=== PATIENT | female | born 1990 | race Caucasian/White ===

== ENCOUNTER → 2017-04-15 | Outpatient (CLI) | payer OTHER ==
[~2017-04-15] MED LIST: ACET325 PO; ALBU90OI; ALBU90OI INH; Advil200 M1; CEPH250A PO; CEPH500 PO; CIPRO500 MG PO; Cheratussin AC118 ML PO; DIPATR PO; DOXY100 PO; FLUO10 PO; Flagyl500 MG PO; HYDACE5325 PO; IBUP200 PO; IBUP800 PO; LOMEDIA 24 FE1 EACH PO; METERG.2 PO; METO10 PO; MULVITMINE PO; NAPR500 PO; OMEP40CA12; ONDA4ODT MM; OXYACE5T PO; PREN-16 PO; PROC10 PO; PROM25 PO; Pepcid40 MG PO; Percocet 5-3251 EACH PO; Phenergan25 MG PR; Prednisone20 MG PO; RANI150 PO; RXONDA4ODT MM; TRAM50 PO; Verotin-Gr Cap1 EACH PO; Zithromax250 MG PO; Zofran Odt8 MG SL
== END | disposition home or self-care (01) ==
LOC: PLD 13:24 → LAB SHORT 13:24
DX: D22.5 Melanocytic nevi of trunk (principal); L90.5 Scar conditions and fibrosis of skin
CPT/HCPCS: 88305

== ENCOUNTER 2017-06-26 23:48 | Emergency (ER) | payer OTHER ==
[~2017-06-26] VITALS: Ht 157.5 cm; Wt 68.0 kg
== END 2017-06-27 00:33 | disposition home or self-care (01) ==
LOC: ER 23:48
DX: J06.9 Acute upper respiratory infection, unspecified (principal); Z88.8 Allergy status to other drugs, medicaments and biological substances; Z79.899 Other long term (current) drug therapy; Z79.52 Long term (current) use of systemic steroids; J45.909 Unspecified asthma, uncomplicated; G40.909 Epilepsy, unspecified, not intractable, without status epilepticus; F41.9 Anxiety disorder, unspecified; F32.9 Major depressive disorder, single episode, unspecified
CPT/HCPCS: 87081; 87430; 99283

== ENCOUNTER → 2019-08-07 | Outpatient (CLI) | payer OTHER ==
[~2019-08-07] MED LIST changes: +Amoxicillin875 MG PO; +PAROEX473 ML MM
== END | disposition home or self-care (01) ==
LOC: LAB SHORT 15:24 → LAB EV 15:24
DX: N39.0 Urinary tract infection, site not specified (principal)
CPT/HCPCS: 87086

== ENCOUNTER → 2022-01-23 | Outpatient (CLI) | payer OTHER ==
[2022-01-28 11:10] LABS: HPV 16 Negative (Negative); HPV 18 Negative (Negative); HPV OTHER HR TYPES Negative (Negative)
== END | disposition home or self-care (01) ==
LOC: RAD SHORT 10:15 → LAB 10:15
PROVIDERS: Obstetrics & Gynecology
DX: Z01.419 Encounter for gynecological examination (general) (routine) without abnormal findings (principal)
CPT/HCPCS: 87624; G0123

== ENCOUNTER 2023-01-14 05:53 | Day surgery (SDC) | payer OTHER ==
[~2023-01-14] VITALS: Ht 157.5 cm; Wt 95.7 kg
[2023-01-14] VITALS (16 sets, daily range): BP systolic 110–155; BP diastolic 72–90
--- NOTE | 2023-01-14 07:33 | NUR ---
History, Chart, Medications and Allergies reviewed before start of procedure. Lungs clear T/O to Auscultation. Patient confirms NPO status and agrees with scheduled surgery. Pre-Op teaching done. Pt verbalizes understanding. Patient reports completing Chlorhexadine shower X2 prior to admission to hospital.
[2023-01-14] MEDS ORDERED: ACET500 PO (15:24)
[2023-01-14] MEDS ORDERED: OXYC5 PO (15:25)
[2023-01-14] MEDS ORDERED: CLIMARA1 EACH TD (15:25)
--- NOTE | 2023-01-14 15:36 | NUR ---
DISCHARGE NOTE: PATIENT WAS EDUCATED ON DISCHARGE INSTRUCTIONS. PATIENT VERBALIZED UNDERSTANDING OF INSTRUCTIONS AND HAD NO FURTHER QUESTIONS AT THIS TIME. IV WAS TAKEN OUT AND WNL. PAIN IS MANAGED WITH ORAL PAIN MEDS. HER ABD HAS X4 LAP SITES WITH WOUND GLUE THAT ARE C/D/I. ABD BINDER IS ALSO IN PLACE. SHE IS TOLERATING PO INTAKE AND IS VOIDING/PASSING GAS. PATIENT IS DRESSED AND HAS PERSONAL ITEMS IN THE ROOM GATHERED. PATIENT IS BEING WHEELCHAIRED OUT TO HER SPOUSES CAR TO BE TAKEN HOME. PATIENTS ESTROGEN PATCH WAS ALSO PLACED ON PATIENT.
== END 2023-01-14 15:39 | disposition home or self-care (01) ==
LOC: ORSCMMR 05:53 → ORD 07:30 → ORSCMMR 07:30 → SURS 10:05 → ORSCMMR 10:06 → SURS 15:39 → ORSCMMR 15:39
PROVIDERS: Obstetrics & Gynecology
PROC: 0UT94ZZ Resection of Uterus, Percutaneous Endoscopic Approach (ICD-10-PCS; principal; 2023-01-14 07:30)
DX: N93.9 Abnormal uterine and vaginal bleeding, unspecified (principal); R10.2 Pelvic and perineal pain; N94.6 Dysmenorrhea, unspecified; N84.0 Polyp of corpus uteri; E28.2 Polycystic ovarian syndrome; F41.8 Other specified anxiety disorders; J45.909 Unspecified asthma, uncomplicated; Z79.899 Other long term (current) drug therapy
CPT/HCPCS: 88307; A9270; J0690; J1100; J1170; J2250; J2405; J2704; J2765; J3010; J7120

== ENCOUNTER → 2023-02-25 | Outpatient (CLI) | payer OTHER ==
[~2023-02-25] MED LIST changes: +ACET500 PO; +CLIMARA1 EACH TD; +OXYC5 PO
[2023-02-25 12:16] LABS: Source, Urine Clean Catch
[2023-02-25 16:07] LABS: Bilirubin, Urine Neg (Neg); Blood, Urine Neg (Neg); Color, Urine Yellow (P-Yellow); Glucose Qualitative, Urine Neg (Neg); Ketones, Urine Neg (Neg); Leukocyte Esterase, Urine Neg (Neg); Nitrite, Urine Neg (Neg); Protein, Urine Neg (Neg); Urobilinogen, Urine NORM (Normal)
[2023-02-25 16:43] LABS: Appearance, Urine Clear (Clear)
== END ==
LOC: LAB SHORT 12:14 → LAB 12:14
PROVIDERS: Obstetrics & Gynecology
DX: N39.0 Urinary tract infection, site not specified (principal)
CPT/HCPCS: 81003